=== PATIENT | male | born 1990 | race Caucasian/White ===

== ENCOUNTER 2022-05-05 13:08 | Emergency (ER) | payer MEDICAID ==
[~2022-05-05] VITALS: Ht 167.6 cm; Wt 84.1 kg
[2022-05-05 14:40] VITALS: BP 112/71
[2022-05-05] MEDS ORDERED: TAM75C PO (16:51)
== END 2022-05-05 17:29 | disposition home or self-care (01) ==
LOC: ER 13:10
DX: J10.1 Influenza due to other identified influenza virus with other respiratory manifestations (principal); Z20.822 Contact with and (suspected) exposure to COVID-19; F17.200 Nicotine dependence, unspecified, uncomplicated
CPT/HCPCS: 71045; 87502; 87503; 87635; 99284; C9803